=== PATIENT | female | born 1990 | race Caucasian/White ===

== ENCOUNTER 2017-05-03 18:08 | Emergency (ER) | payer MEDICAID, OTHER ==
[2017-05-03 18:08] VITALS: BMI 30.5
[2017-05-03 18:22] VITALS: RESP 16; TEMP 98; O2SAT 98
[2017-05-03 18:40] LABS: RBC URINE 95 /hpf (0-3); TRANSITIONAL EPITHIAL < 1 /hpf (0-3); URINE BACTERIA FEW (<OCC); URINE BILIRUBIN NEGATIVE (NEGATIVE); URINE BLOOD 3+ (NEGATIVE); URINE COLOR Red (YELLOW); URINE GLUCOSE (UA) NORMAL (Normal); URINE KETONE NEGATIVE (NEGATIVE); URINE LEUKOCYTE ESTERASE 2+ Leu/uL (Negative); URINE PROTEIN 2+ mg/dL (NEGATIVE); URINE UROBILINOGEN NORMAL mg/dL (0.2-1.0); WBC URINE 220 /hpf (0-5)
--- NOTE | 2017-05-03 18:51 | C.PDOC ---
History Of Present Illness 27 year old female who presents to the ER with a complaint of dysuria, associated with hematuria, for approximately 5 days. Patient denies fever, vomiting, or back pain. Time Seen by Provider: 05/03/17 18:41 Chief Complaint (Nursing): Female Genitourinary History Per: Patient History/Exam Limitations: no limitations Onset/Duration Of Symptoms: Days Current Symptoms Are (Timing): Still Present Quality Of Discomfort: Burning Associated Symptoms: Urinary Symptoms. denies: Fever, Chills, Nausea, Vomiting Alleviating Factors: None Recent travel outside of the [place]: No Abnormal Vaginal Bleeding: No Past Medical History Reviewed: Historical Data, Nursing Documentation, Vital Signs Vital Signs: Last Vital Signs Temp 98 F 05/03/17 18:15 Pulse 78 05/03/17 19:27 Resp 16 05/03/17 19:27 BP 133/75 05/03/17 19:27 Pulse Ox 98 05/03/17 23:34 - Medical History PMH: No Chronic Diseases Surgical History: No Surg Hx - [facility] Procedures ARTIF RUPT MEMBRANES NEC (06/28/13) INFLUENZA VACCINATION (06/28/13) INJECT RH IMMUNE GLOBUL (06/28/13) MANUAL ASSIST DELIV NEC (06/28/13) REPAIR OB LAC RECT/ANUS (06/28/13) Family History: States: Unknown Family Hx - Social History Hx Alcohol Use: No Hx Substance Use: No Review Of Systems Constitutional: Negative for: Fever, Chills Gastrointestinal: Negative for: Nausea, Vomiting Genitourinary: Positive for: Dysuria, Hematuria Musculoskeletal: Negative for: Back Pain Physical Exam - Physical Exam Appears: Non-toxic Skin: Normal Color, Warm, Dry, No Rash Head: Atraumatic, Normacephalic Eye(s): bilateral: Normal Inspection Oral Mucosa: Moist Neck: Normal ROM, Supple Chest: Symmetrical, No Tenderness Cardiovascular: Rhythm Regular, No Murmur Respiratory: Normal Breath Sounds, No Rales, No Rhonchi, No Wheezing Gastrointestinal/Abdominal: Soft, Tenderness (Suprapubic) Back: Normal Inspection, No CVA Tenderness, No Vertebral Tenderness, No Paraspinal Tenderness Neurological/Psych: Oriented x3, Normal Speech, Normal Cognition ED Course And Treatment - Laboratory Results Urine POC: Negative (POC negative) O2 Sat by Pulse Oximetry: 98 (Room air) Pulse Ox Interpretation: Normal Medical Decision Making Medical Decision Making: Plan: * Urine culture * Cipro * Pyridium Patient given Rx for symptoms and advised to follow up with PMD or return to ED if symptoms worsen. Disposition - Disposition Referrals: [facility] [Outside] Disposition: HOME/ ROUTINE Disposition Time: 19:17 Condition: GOOD Additional Instructions: Follow up with the medical doctor within 1-2 days. Return if worsened. Prescriptions: Ciprofloxacin [Cipro] 1 tab PO BID #14 tab Phenazopyridine HCl [Pyridium] 200 mg PO TID #7 tablet Instructions: Urinary Tract Infection in Women (ED) Forms: [employer] (Kinyarwanda) - Clinical Impression Clinical Impression: UTI (urinary tract infection) - Scribe Statement The provider has reviewed the documentation as recorded by the Scribe Constantin Smith All medical record entries made by the Scribe were at my direction and personally dictated by me. I have reviewed the chart and agree that the record accurately reflects my personal performance of the history, physical exam, medical decision making, and the department course for this patient. I have also personally directed, reviewed, and agree with the discharge instructions and disposition.
[2017-05-03 19:28] VITALS: BP 133/75; PULSE 78
== END 2017-05-03 19:27 | disposition home or self-care (01) ==
LOC: C.ER 18:08
DX: N39.0 Urinary tract infection, site not specified (principal); R31.9 Hematuria, unspecified

== ENCOUNTER 2017-08-22 18:39 | Emergency (ER) | payer MEDICAID ==
[2017-08-22 18:39] VITALS: BMI 30.5
[2017-08-22 20:47] LABS: RBC URINE 5 /hpf (0-3); URINE BACTERIA RARE (<OCC); URINE BILIRUBIN NEGATIVE (NEGATIVE); URINE BLOOD 1+ (NEGATIVE); URINE COLOR Yellow (YELLOW); URINE GLUCOSE (UA) NORMAL (Normal); URINE KETONE NEGATIVE (NEGATIVE); URINE LEUKOCYTE ESTERASE NEG Leu/uL (Negative); URINE PROTEIN NEGATIVE (NEGATIVE); URINE UROBILINOGEN NORMAL mg/dL (0.2-1.0); WBC URINE < 1 /hpf (0-5)
--- NOTE | 2017-08-22 21:10 | C.PDOC ---
History Of Present Illness Pateint seen tgonite due to reccurent lower abd pain for 3 months, pain is increased for the past 3 days. Chief Complaint (Nursing): Abdominal Pain History Per: Patient History/Exam Limitations: no limitations Onset/Duration Of Symptoms: Days Current Symptoms Are (Timing): Still Present Severity: Moderate Pain Scale Rating Of: 4 Location Of Pain/Discomfort: Suprapubic Radiation Of Pain To:: None Quality Of Discomfort: Sharp, "Pain" Associated Symptoms: denies: Fever, Chills, Nausea, Vomiting, Diarrhea, Constipation, Urinary Symptoms Exacerbating Factors: None Alleviating Factors: None Last Bowel Movement: Today Recent travel outside of the [place]: No Additional History Per: Patient Abnormal Vaginal Bleeding: No Past Medical History Vital Signs: Last Vital Signs Temp 98.6 F 08/22/17 18:49 Pulse 74 08/22/17 18:49 Resp 18 08/22/17 18:49 BP 103/68 08/22/17 18:49 Pulse Ox 100 08/23/17 00:01 - Medical History PMH: No Chronic Diseases Surgical History: No Surg Hx - [facility] Procedures ARTIF RUPT MEMBRANES NEC (06/28/13) INFLUENZA VACCINATION (06/28/13) INJECT RH IMMUNE GLOBUL (06/28/13) MANUAL ASSIST DELIV NEC (06/28/13) REPAIR OB LAC RECT/ANUS (06/28/13) Family History: States: Unknown Family Hx - Social History Hx Alcohol Use: No Hx Substance Use: No - Immunization History Hx Tetanus Toxoid Vaccination: No Hx Influenza Vaccination: No Hx Pneumococcal Vaccination: No Review Of Systems Constitutional: Negative for: Fever Cardiovascular: Negative for: Chest Pain, Palpitations, Orthopnea, Edema, Light Headedness Respiratory: Negative for: Cough, Shortness of Breath, Hemoptysis, Pleuritic Pain Gastrointestinal: Positive for: Abdominal Pain. Negative for: Nausea, Vomiting , Diarrhea, Constipation Genitourinary: Positive for: Pelvic Pain. Negative for: Dysuria, Frequency, Hematuria, Vaginal Discharge, Vaginal Bleeding Musculoskeletal: Negative for: Neck Pain Skin: Negative for: Rash Neurological: Negative for: Weakness, Numbness, Incoordination, Change in Speech , Dizziness Psych: Negative for: Anxiety, Depression ED Course And Treatment - Laboratory Results Result Diagrams: 08/22/17 21:06 11/28/17 21:06 O2 Sat by Pulse Oximetry: 100 Disposition Counseled Patient/Family Regarding: Diagnosis - Disposition Referrals: at [facility] [Outside] Disposition Time: 23:59 Condition: STABLE Prescriptions: Naproxen 375 mg PO TIDPC #14 tablet Instructions: Pelvic Pain (ED) Forms: [facility] (Yi) - POA Present On Arrival: None - Clinical Impression Clinical Impression: Pelvic pain
[2017-08-22 21:17] LABS: BASO % 0.4 % (0.0-2.0); EOS % 0.5 % (0.0-4.0); HEMATOCRIT 38.8 % (34.0-47.0); LYMPH # 2.9 K/uL (1.0-4.3); LYMPH % 33.2 % (20.0-40.0); MEAN CELL VOLUME 88.8 fL (81.0-99.0); MEAN CORPUSCULAR HEMOGLOBIN 29.8 pg (27.0-31.0); MEAN CORPUSCULAR HGB CONC 33.5 g/dL (33.0-37.0); MEAN PLATELET VOLUME 10.6 fL (7.2-11.7); MONO # 0.5 K/uL (0.0-0.8); MONO % 6.2 % (0.0-10.0); RED CELL DISTRIBUTION WIDTH 12.3 % (11.5-14.5); WHITE BLOOD COUNT 8.8 K/uL (4.8-10.8)
[2017-08-22 21:34] LABS: ALKALINE PHOSPHATASE 44 U/L (38-126); ALT/SGPT 31 U/L (9-52); AST/SGOT 25 U/L (14-36); BILIRUBIN,TOTAL 0.3 mg/dL (0.2-1.3); BLOOD UREA NITROGEN 14 mg/dL (7-17); CALCIUM 8.4 mg/dl (8.6-10.4); CARBON DIOXIDE 23 mmol/L (22-30); CHLORIDE 102 mmol/L (98-107); GFR AFRICAN-AMERICAN > 60; GLUCOSE,RANDOM 80 mg/dL (65-105); POTASSIUM 3.5 mmol/L (3.6-5.2); SODIUM 136 mmol/L (132-148); TOTAL PROTEIN 8.6 g/dL (6.3-8.3)
[2017-08-23 00:08] VITALS: BP 125/81; PULSE 92; RESP 20; TEMP 98.4; O2SAT 95
--- NOTE | 2017-08-23 08:51 | US ---
HISTORY: abd pain COMPARISON: None available. TECHNIQUE: Transabdominal and transvaginal FINDINGS: UTERUS: Measures 8.4 x 4.5 x 5.4 cm. Normal in size and appearance. No fibroid or other mass lesion seen. ENDOMETRIUM: Measures 7 mm in diameter. Intrauterine device noted within the endometrial echo complex. CERVIX: No cervical abnormality identified. RIGHT OVARY: Measures 3.6 x 2.7 x 2.5 cm. No solid mass. Normal flow. LEFT OVARY: Measures 6.1 x 4.0 x 4.6 cm. No solid mass. Normal flow. Complex left ovarian cyst with internal echoes and septations, 4.9 x 3.0 x 3.4 cm. Likely hemorrhagic cyst. Recommend followup transvaginal pelvic ultrasound examination in 6-8 weeks to assess for interval change. FREE FLUID: No significant free fluid noted. OTHER FINDINGS: None. IMPRESSION: Complex 4.9 cm left ovarian cyst. Recommend followup transvaginal pelvic ultrasound examination in 6-8 weeks. Intrauterine device noted appropriately positioned within the endometrial echo complex.
== END 2017-08-23 00:14 | disposition home or self-care (01) ==
LOC: C.ER 18:39
DX: N83.209 Unspecified ovarian cyst, unspecified side (principal); R10.2 Pelvic and perineal pain